=== PATIENT | female | born 1940 | race Caucasian/White ===

== ENCOUNTER 2016-07-04 13:43 | Emergency (ER) | payer OTHER ==
--- NOTE | 2016-07-04 14:37 | ED CLINICAL REPORT ---
Clinical Report - Physicians/Mid Levels [facility] [address] [place] [address] 07/04/2016 13:48 Patient: YVETTE HERNANDEZ Time Seen: 1416. Arrived- By private vehicle. Historian- patient. HISTORY OF PRESENT ILLNESS Chief Complaint: confusion. This started today, patient was last known well (yesterday), is still present (resolved) and is now gone. It was abrupt in onset and has been constant. (amnesia). At its maximum deficit described as mild. When seen in the E.D., it was gone. No dizziness, altered mental status, seizure or blackouts. Usually is alert and oriented X3 and has normal mobility. Similar symptoms previously: None. Recent medical care: The patient was seen recently in a clinic. ( referred here to the emergency department). REVIEW OF SYSTEMS No fever, headache, head injury, chest pain or abdominal pain. No nausea, skin rash or vomiting. All systems otherwise negative, except as recorded above. PAST HISTORY See nurses notes. Medications: another one doesn't know what or what for. Blood Pressure Pill. Allergies: No Known Drug Allergy. SOCIAL HISTORY Former smoker. Alcohol use. No drug use. No recent travel. Is a local resident. ADDITIONAL NOTES The nursing notes have been reviewed. PHYSICAL EXAM Vital Signs: 07/04/2016 13:51 BP: 149/106. HR: 88. RR: 18. O2 saturation: 98%. Temp: 98.4 F. Oxygen saturation normal. Appearance: Alert. No acute distress. Odor of alcohol is not present. Speech is not slurred. The patient is not agitated. (nontoxic in appearance. cooperative, pleasant, polite). Head: Head atraumatic. Eyes: Pupils equal, round and reactive to light. ENT: Normal ENT inspection. Airway intact. Pharynx normal. (PERRLA. extraocular movements are intactno nystagmus.). Neck: Normal inspection. Neck supple. CVS: Normal heart rate and rhythm. Heart sounds normal. Pulses normal. Respiratory: No respiratory distress. Breath sounds normal. Abdomen: Soft and nontender. No organomegaly. Skin: Skin warm and dry. Normal skin color. No rash. Normal skin turgor. Extremities: Extremities exhibit normal ROM. No lower extremity edema. Neuro: Alert. Oriented X 3. Mood/affect normal. Speech normal. Cranial nerves normal (as tested). No cerebellar findings. No motor deficit. No sensory deficit. Reflexes normal. PROGRESS AND PROCEDURES Course of Care: the patient is a pleasant 75-year-old female presenting for evaluation of amnesia. Because of the patient's presentation, would be concern for TIA or CVA. Patient expressed her concerns here in the emergency department about of "milking her insurance company. "Patient further states that she feels fine and she does not want to be here and does not want any workup performed. expressed my concern for her symptoms yesterday. Explained to patient that her symptoms may have resolved because of a transient ischemic attack and would be at increased risk for having a stroke in the future. Patient expressed understanding of my concerns however states that she does not need to the here in the emergency department but will follow up with her doctor. Discussed with the patienther significant risk for severe permanent disability and including . The patient expressed understanding of these concerns however still declines offers of evaluation of these symptoms. Patient offered other options while here in the emergency department and also told that she is welcome to change her mind at any time. Patient also encouraged to return if she does change her mind after departure from the emergency department. Patient again expressed her thanks in gratitude for our concern however stated that she still does not feel that any of these tests or workup is warranted. Do not feel doctor patient relationship would significantly benefit from AMA form. Patient is able to make medical decisions for herself. Do not feel I can force patient to undergo invasive medical/diagnostic testing against her will. Patient understands our concerns and our willingness to help if she allows us to. Disposition: Discharged. Condition: (unknown). CLINICAL IMPRESSION Acute mental status change with confusion. 07/04/2016 13:51 BP: 149/106. HR: 88. RR: 18. O2 saturation: 98%. Temp: 98.4 F. Hypertensive. Oxygen saturation normal. acute amnesia. INSTRUCTIONS Warnings: GENERAL WARNINGS: Return or contact your physician immediately if your condition worsens or changes unexpectedly, if not improving as expected, or if other problems arise. Specifically return if pain, vomiting, bleeding, breathing difficulty or fever. numbness, weakness, vision changes, difficulty with speech, or other concerns. Your Current Medications: CONTINUE TAKING THE FOLLOWING MEDICATIONS: another one doesn't know what or what for*. Blood Pressure Pill*. Follow-up: Return to the emergency department as needed. Follow up with your doctor in three days. Reason for referral: recheck today's concerns. Summary of care provided to patient via paper. Screening today revealed the patient's blood pressure to be in the normal range. The patient should follow up with a primary care provider for blood pressure management. Understanding of the discharge instructions verbalized by patient. Follow-up with: Nisha Muñoz MD, Neurology, , [address] , [place], [id number] Follow up in three days. Reason for referral: recheck today's concerns. Summary of care provided to patient via paper. (Electronically signed by New Magana Dr. 07/07/2016 6:08)
--- NOTE | 2016-07-04 14:37 | ED NURSING NOTES ---
Clinical Report - Nurses [facility] [address] [place] [address] 07/04/2016 13:48 [id number] Triage time 13:52 Jul 04 2016. Acuity: LEVEL 3. Chief Complaint: (Has periods of amnesia yesterday couldn't remember getting up and getting ready and went to a lunch with a friend but has no memory.). CHEMA COMA SCORE: Willis Coma Scale: 15- eyes open spontaneously (4); best verbal response- oriented x 4 (5); best motor response- obeys commands (6). --14:03 Simi Frias R.N. 13:51 07/04/16. BP: 149/106. HR: 88. RR: 18. O2 saturation: 98%. Temp: 98.4 F. Pain level now 0/10. --14:03 Simi Frias R.N. Weight: 104.3 kg stated. Height/Length: 67 inches Per Patient. BMI: 36. --14:01 Simi Frias R.N. Medications Blood Pressure Pill. --13:55 Simi Frias R.N. another one doesn't know what or what for. --13:56 Simi Frias R.N. Allergies No Known Drug Allergy. --13:56 Simi Frias R.N. History Arrived by private vehicle. Historian: patient. Accompanied by family. This started yesterday. Patient was last known well (Friday). She has had altered mental status. No headache, recent fall, impaired speech or trouble walking or swallowing. No dizziness, weakness or numbness. Treatment MANAGER REVENUE: None. PAST MEDICAL HX: Hypertension. No history of stroke or diabetes mellitus. No history of dementia or seizures. Immunizations: status is unknown. SOCIAL HX: Former smoker, end date 1965. Regular alcohol use; consumes one liquor daily. No drug use. SELF HARM ASSESSMENT: A self harm assessment was performed. The patient answered "no" to the question "Have you recently felt down, depressed, or hopeless?" and "Do you have thoughts of harming or killing yourself?". FALL RISK ASSESSMENT: Fall risk assessment completed. No fall risk identified. NUTRITIONAL RISK ASSESSMENT: The nutritional risk assessment revealed no deficiencies. FUNCTIONAL ASSESSMENT: Functional assessment: no impairments noted. LEARNING NEEDS ASSESSMENT: The learning needs assessment revealed no barriers. ABUSE ASSESSMENT: Abuse assessment: (yes) The patient was asked "Do you feel safe in your home?". SKIN INTEGRITY ASSESSMENT: Skin integrity risk assessment completed. No skin integrity risk identified. --14: Simi Frias R.N. PROBLEMS: High blood pressure . --13:58 Simi Frias R.N. ADDITIONAL SURGERIES: Hysterectomy. Wrist surgery . --13:58 Simi Frias R.N. Interventions ID band on patient. --14: Simi Frias R.N. PHYSICAL ASSESSMENT Ambulatory to room. Baseline functional status: usually alert, oriented x4 and cooperative. Verbal response: usually clear and appropriate. Motor response: usually steady gait ( Had episode of no memory doesn't remember waking up yesterday or any morning activities until noon.). GENERAL / NEURO / PSYCH: Awake. Oriented X 4. Alert. Appears in no acute distress. Speech normal. Mood/affect normal. Moves all extremities equally. No motor deficit. No sensory deficit. HEENT: No facial asymmetry noted. Pupils equal, round and reactive to light. EOM intact. Pharynx within normal limits. RESPIRATORY: Breath sounds within normal limits. Respirations not labored. CVS: Normal sinus rhythm noted. Capillary refill less than 2 seconds. SKIN: Skin is intact, warm and dry. --14:05 Simi Frias R.N. NURSING PROGRESS NOTES The initial plan of care for this patient includes an assessment with efforts to address patient positioning, appropriate ambient lighting and comfortable environmental temperature. Pulse oximeter and NIBP monitor placed on patient. Patient gowned. Head of bed elevated 75 degrees. Reassurance given. Call light placed in reach. Side rails up x 1. Bed placed in lowest position. Brakes of bed on. --14:05 Simi Frias R.N. DISPOSITION / DISCHARGE Departure time: 1449Jul 04 2016. Condition at departure: unchanged. No learning barriers present. Discharge instructions provided and reviewed with the patient. Reviewed warnings. Reviewed medication(s). Treatments reviewed. Reviewed referrals. Patient verbalized understanding. Written instructions provided in Icelandic. The patient was discharged home and accompanied by family. She left the Emergency Department ambulatory and via private vehicle. Family member driving. ( Patient refused all care. Instructed about following up with neuro and gave the info for her to contact.). --15:15 Simi Frias R.N. 13:51 07/04/16. BP: 149/106. HR: 88. RR: 18. O2 saturation: 98%. Temp: 98.4 F. Pain level now 0/10. --15:15 Simi Frias R.N. Locked/Released at 07/04/2016 18:55 by Simi Frias R.N.
--- NOTE | 2016-07-04 14:37 | ED NURSING NOTES ---
Clinical Report - Nurses [facility] [address] [place] [address] 07/04/2016 13:48 [id number] Triage time 13:52 Jul 04 2016. Acuity: LEVEL 3. Chief Complaint: (Has periods of amnesia yesterday couldn't remember getting up and getting ready and went to a lunch with a friend but has no memory.). CHEMA COMA SCORE: Mascotte Coma Scale: 15- eyes open spontaneously (4); best verbal response- oriented x 4 (5); best motor response- obeys commands (6). --14:03 Simi Frias R.N. 13:51 07/04/16. BP: 149/106. HR: 88. RR: 18. O2 saturation: 98%. Temp: 98.4 F. Pain level now 0/10. --14:03 Simi Frias R.N. Weight: 104.3 kg stated. Height/Length: 67 inches Per Patient. BMI: 36. --14:01 Simi Frias R.N. Medications Blood Pressure Pill. --13:55 Simi Frias R.N. another one doesn't know what or what for. --13:56 Simi Frias R.N. Allergies No Known Drug Allergy. --13:56 Simi Frias R.N. History Arrived by private vehicle. Historian: patient. Accompanied by family. This started yesterday. Patient was last known well (Friday). She has had altered mental status. No headache, recent fall, impaired speech or trouble walking or swallowing. No dizziness, weakness or numbness. 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 PAST MEDICAL HX: Hypertension. No history of stroke or diabetes mellitus. No history of dementia or seizures. Immunizations: status is unknown. SOCIAL HX: Former smoker, end date 1965. Regular alcohol use; consumes one liquor daily. No drug use. SELF HARM ASSESSMENT: A self harm assessment was performed. The patient answered "no" to the question "Have you recently felt down, depressed, or hopeless?" and "Do you have thoughts of harming or killing yourself?". FALL RISK ASSESSMENT: Fall risk assessment completed. No fall risk identified. NUTRITIONAL RISK ASSESSMENT: The nutritional risk assessment revealed no deficiencies. FUNCTIONAL ASSESSMENT: Functional assessment: no impairments noted. LEARNING NEEDS ASSESSMENT: The learning needs assessment revealed no barriers. ABUSE ASSESSMENT: Abuse assessment: (yes) The patient was asked "Do you feel safe in your home?". SKIN INTEGRITY ASSESSMENT: Skin integrity risk assessment completed. No skin integrity risk identified. --14: Simi Frias R.N. PROBLEMS: High blood pressure . --13:58 Simi Frias R.N. ADDITIONAL SURGERIES: Hysterectomy. Wrist surgery . --13:58 Simi Frias R.N. Interventions ID band on patient. --14: Simi Frias R.N. PHYSICAL ASSESSMENT Ambulatory to room. Baseline functional status: usually alert, oriented x4 and cooperative. Verbal response: usually clear and appropriate. Motor response: usually steady gait ( Had episode of no memory doesn't remember waking up yesterday or any morning activities until noon.). GENERAL / NEURO / PSYCH: Awake. Oriented X 4. Alert. Appears in no acute distress. Speech normal. Mood/affect normal. Moves all extremities equally. No motor deficit. No sensory deficit. HEENT: No facial asymmetry noted. Pupils equal, round and reactive to light. EOM intact. Pharynx within normal limits. RESPIRATORY: Breath sounds within normal limits. Respirations not labored. CVS: Normal sinus rhythm noted. Capillary refill less than 2 seconds. SKIN: Skin is intact, warm and dry. --14:05 Simi Frias R.N. NURSING PROGRESS NOTES The initial plan of care for this patient includes an assessment with efforts to address patient positioning, appropriate ambient lighting and comfortable environmental temperature. Pulse oximeter and NIBP monitor placed on patient. Patient gowned. Head of bed elevated 75 degrees. Reassurance given. Call light placed in reach. Side rails up x 1. Bed placed in lowest position. Brakes of bed on. --14:05 Simi Frias R.N. DISPOSITION / DISCHARGE Departure time: 1449Jul 04 2016. Condition at departure: unchanged. No learning barriers present. Discharge instructions provided and reviewed with the patient. Reviewed warnings. Reviewed medication(s). Treatments reviewed. Reviewed referrals. Patient verbalized understanding. Written instructions provided in Somali. The patient was discharged home and accompanied by family. She left the Emergency Department ambulatory and via private vehicle. Family member driving. ( Patient refused all care. Instructed about following up with neuro and gave the info for her to contact.). --15:15 Simi Frias R.N. 13:51 07/04/16. BP: 149/106. HR: 88. RR: 18. O2 saturation: 98%. Temp: 98.4 F. Pain level now 0/10. --15:15 Simi Frias R.N. Locked/Released at 07/04/2016 18:55 by Simi Frias R.N.
--- NOTE | 2016-07-04 14:37 | ED ORDER SUMMARY ---
..... Patient: YVETTE HERNANDEZ OrderSheet [facility] VisitID: [id number] [address] [place] [address] 75y, F Registration Date/Time: 07/04/2016 ORDER SHEET Weight: 104.3 kg (stated) Allergies: No Known Drug Allergy GENERAL ORDERS: Chest 2V Urgent (14:15 07/04/2016 Jean Carlos Sotelo) (Ack 14:18 Bob) Photogrammetric Tech (Continuous) (amnesia) (14:15 07/04/2016 Jean Carlos Sotelo) (Ack 14:17 Bob) CT Head wo Cont Urgent (14:16 07/04/2016 Jean Carlos Sotelo) (Ack 14:18 Bob) CBC w Diff Urgent (14:16 07/04/2016 Jean Carlos Sotelo) (Ack 14:18 Bob) CMP Urgent (14:16 07/04/2016 Jean Carlos Sotelo) (Ack 14:17 Bob) UA-Culture if indicated Urgent (14:16 07/04/2016 Jean Carlos Sotelo) (Ack 14:17 Bob) PT with INR Urgent (14:16 07/04/2016 Jean Carlos Sotelo) (Ack 14:17 Bob) EKG - ER Stat (14:16 07/04/2016 Jean Carlos Sotelo) (Ack 14:17 Lilo) (Ack 14:18 Bob) Pulse oximeter (14:16 07/04/2016 Jean Carlos Sotelo) (Ack 14:17 Bob) MEDICATION ORDERS: IV FLUIDS: IV Saline Lock (14:16 07/04/2016 Jean Carlos Sotelo) ORDER SHEET NOTES: [Electronically signed by Simi Frias R.N. (18:55 07/04/2016)] [Electronically signed by New Mag[address] Dr. (06:08 07/07/2016)] [Electronically locked/signed by Simi Frias R.N. (18:55 07/04/2016)]
--- NOTE | 2016-07-04 14:37 | ED ORDER SUMMARY ---
..... Patient: YVETTE HERNANDEZ OrderSheet [facility] VisitID: [id number] [address] [place] [address] 75y, F Registration Date/Time: 07/04/2016 ORDER SHEET Weight: 104.3 kg (stated) Allergies: No Known Drug Allergy GENERAL ORDERS: Chest 2V Urgent (14:15 07/04/2016 Jean Carlos Sotelo) (Ack 14:18 Bob) Compliance Field Technician (Continuous) (amnesia) (14:15 07/04/2016 Jean Carlos Sotelo) (Ack 14:17 Bob) CT Head wo Cont Urgent (14:16 07/04/2016 Jean Carlos Sotelo) (Ack 14:18 Bob) CBC w Diff Urgent (14:16 07/04/2016 Jean Carlos Sotelo) (Ack 14:18 Bob) CMP Urgent (14:16 07/04/2016 Jean Carlos Sotelo) (Ack 14:17 Bob) UA-Culture if indicated Urgent (14:16 07/04/2016 Jean Carlos Sotelo) (Ack 14:17 Bob) PT with INR Urgent (14:16 07/04/2016 Jean Carlos Sotelo) (Ack 14:17 Bob) EKG - ER Stat (14:16 07/04/2016 Jean Carlos Sotelo) (Ack 14:17 Lilo) (Ack 14:18 Bob) Pulse oximeter (14:16 07/04/2016 Jean Carlos Sotelo) (Ack 14:17 Bob) MEDICATION ORDERS: IV FLUIDS: IV Saline Lock (14:16 07/04/2016 Jean Carlos Sotelo) ORDER SHEET NOTES: [Electronically signed by Simi Frias R.N. (18:55 07/04/2016)] [Electronically signed by New [address] Dr. (06:08 07/07/2016)] [Electronically locked/signed by Simi Frias R.N. (18:55 07/04/2016)]
--- NOTE | 2016-07-07 06:08 | ED MED RECONCILIATION SUMMARY ---
Patient: YVETTE HERNANDEZ Medication Reconciliation Report [facility] VisitID: [id number] [address] [place] [address] 75y, F Registration Date/Time: 07/04/2016 Weight: 104.3 kg Height/Length: 67 in. BMI: 36.0 ALLERGIES: No Known Drug Allergy The patient's Home Medications are listed below: CONTINUE TAKING THE FOLLOWING MEDICATIONS: another one doesn't know what or what for Blood Pressure Pill The source(s) of the original Home Medication information: Not obtained. The following Medications were given to the patient in the Emergency Department: None. The following Medications were prescribed to the patient: None.
--- NOTE | 2016-07-07 06:08 | ED DISCHARGE INSTRUCTIONS ---
Patient: YVETTE HERNANDEZ General Instructions [facility] VisitID: [id number] [address] [place] [address] 75y, F Registration Date/Time: 07/04/2016 Acute mental status change with confusion. 07/04/2016 13:51 BP: 149/106. HR: 88. RR: 18. O2 saturation: 98%. Temp: 98.4 F. Hypertensive. Oxygen saturation normal. acute amnesia. INSTRUCTIONS Warnings: GENERAL WARNINGS: Return or contact your physician immediately if your condition worsens or changes unexpectedly, if not improving as expected, or if other problems arise. Specifically return if pain, vomiting, bleeding, breathing difficulty or fever. numbness, weakness, vision changes, difficulty with speech, or other concerns. Your Current Medications: CONTINUE TAKING THE FOLLOWING MEDICATIONS: another one doesn't know what or what for*. Blood Pressure Pill*. Follow-up: Return to the emergency department as needed. Follow up with your doctor in three days. Reason for referral: recheck today's concerns. Summary of care provided to patient via paper. Screening today revealed the patient's blood pressure to be in the normal range. The patient should follow up with a primary care provider for blood pressure management. Understanding of the discharge instructions verbalized by patient. Follow-up with: Nisha Muñoz MD, Neurology, , [address] , [place], [phone] Follow up in three days. Reason for referral: recheck today's concerns. Summary of care provided to patient via paper. ADDITIONAL INFORMATION Confusion Confusion is a change in a persons ability to think clearly. There may be trouble recognizing familiar people and places, or knowing what day it is. Memory, judgement and decision-making may also be affected. In severe cases there may be limited or no response to verbal commands. Confusion may occur suddenly or develop gradually over time. There are many injuries and medical conditions that can cause this problem. These include brain injury, side effect of medication, intoxication, withdrawal from drugs, infection, stroke, dementia,mental illness and other causes. The exam and testing today did not show the cause of this problem. Further testing will be needed. Specific treatment and hope for recovery depend on the cause of this symptom. Home Care: Be sure someone is with the confused person at all times. He/she should not be left alone or unsupervised. Keep medicines (prescription and [id number]) in a secure place, under the caregivers control. A person with confusion should not be allowed to take their own medicines.This needs to be supervised by the caregiver. Ways to help a person with confusion: Activities:Establish a daily routine. Change can be a source of stress for someone with confusion. Make a time schedule for common tasks such as: bathing, dressing, taking medicines, meals, going for walks, shopping, naps and bed time. Communication:Speak slowly and clearly with a gentle tone of voice. Use short simple words and sentences. Ask one question at a time. Do not interrupt, criticize or argue. Be calm and supportive. Use friendly facial expressions. Use pointing and touching to help communicate. If there has been loss of long-term memory, do not ask questions about past events. This would only cause frustration for the person. Behavioral tips:Use lists, signs, family photos, clocks and calendars as memory aids. Label cabinets and drawers. Try to distract, not confront, the patient. When he/she becomes frustrated or upset, redirect his/her attention to eating or some other activity of interest. Medical-Legal tips: If this proves to be a permanent condition, talk to your doctor and/or supervisor epoxy fabrication about getting a Power of Cloth Dyer for health care and for financial decisions. It is best to do this while the person can still sign legal documents and make his/robert own legal decisions. Otherwise, a court order will be required. Follow-Up with the patients doctor or as advised by our staff for further testing. Get Prompt Medical Attention if any of the following occur: Frequent falling Refusal to eat or drink Violent behavior or behavior becomes too difficult to manage at home Increased drowsiness, or failure to respond normally Increasing headache, nausea or repeated vomiting Numbness or weakness of the face, one arm or one leg Slurred speech, trouble speaking, walking or seeing Fainting spell, dizziness or seizure Unexplained fever over 100.4 F (38.0 C) oral You have been given the following additional information: Confusion (Electronically signed by New Magana Dr. 07/07/2016 6:08)
--- NOTE | 2016-07-07 06:08 | ED MAR SUMMARY ---
..... Medication Administration Record [facility] [address] [place] [address] Patient: YVETTE HERNANDEZ Visit ID: [id number] 75y, F Weight: 104.3 kg Height/Length: 67 in BMI: 36 ALLERGIES: No Known Drug Allergy
--- NOTE | 2016-07-07 06:08 | ED MAR SUMMARY ---
..... Medication Administration Record [facility] [address] [place] [address] Patient: YVETTE HERNANDEZ Visit ID: [id number] 75y, F Weight: 104.3 kg Height/Length: 67 in BMI: 36 ALLERGIES: No Known Drug Allergy
--- NOTE | 2016-07-07 06:08 | ED MED RECONCILIATION SUMMARY ---
Patient: YVETTE HERNANDEZ Medication Reconciliation Report [facility] VisitID: [id number] [address] [place] [address] 75y, F Registration Date/Time: 07/04/2016 Weight: 104.3 kg Height/Length: 67 in. BMI: 36.0 ALLERGIES: No Known Drug Allergy The patient's Home Medications are listed below: CONTINUE TAKING THE FOLLOWING MEDICATIONS: another one doesn't know what or what for Blood Pressure Pill The source(s) of the original Home Medication information: Not obtained. The following Medications were given to the patient in the Emergency Department: None. The following Medications were prescribed to the patient: None.
--- NOTE | 2016-07-07 06:08 | ED DISCHARGE INSTRUCTIONS ---
Patient: YVETTE HERNANDEZ General Instructions [facility] VisitID: [id number] [address] [place] [address] 75y, F Registration Date/Time: 07/04/2016 Acute mental status change with confusion. 07/04/2016 13:51 BP: 149/106. HR: 88. RR: 18. O2 saturation: 98%. Temp: 98.4 F. Hypertensive. Oxygen saturation normal. acute amnesia. INSTRUCTIONS Warnings: GENERAL WARNINGS: Return or contact your physician immediately if your condition worsens or changes unexpectedly, if not improving as expected, or if other problems arise. Specifically return if pain, vomiting, bleeding, breathing difficulty or fever. numbness, weakness, vision changes, difficulty with speech, or other concerns. Your Current Medications: CONTINUE TAKING THE FOLLOWING MEDICATIONS: another one doesn't know what or what for*. Blood Pressure Pill*. Follow-up: Return to the emergency department as needed. Follow up with your doctor in three days. Reason for referral: recheck today's concerns. Summary of care provided to patient via paper. Screening today revealed the patient's blood pressure to be in the normal range. The patient should follow up with a primary care provider for blood pressure management. Understanding of the discharge instructions verbalized by patient. Follow-up with: Nisha Muñoz MD, Neurology, , [address] , [place], [id number] Follow up in three days. Reason for referral: recheck today's concerns. Summary of care provided to patient via paper. ADDITIONAL INFORMATION Confusion Confusion is a change in a persons ability to think clearly. There may be trouble recognizing familiar people and places, or knowing what day it is. Memory, judgement and decision-making may also be affected. In severe cases there may be limited or no response to verbal commands. Confusion may occur suddenly or develop gradually over time. There are many injuries and medical conditions that can cause this problem. These include brain injury, side effect of medication, intoxication, withdrawal from drugs, infection, stroke, dementia,mental illness and other causes. The exam and testing today did not show the cause of this problem. Further testing will be needed. Specific treatment and hope for recovery depend on the cause of this symptom. Home Care: Be sure someone is with the confused person at all times. He/she should not be left alone or unsupervised. Keep medicines (prescription and [id number]) in a secure place, under the caregivers control. A person with confusion should not be allowed to take their own medicines.This needs to be supervised by the caregiver. Ways to help a person with confusion: Activities:Establish a daily routine. Change can be a source of stress for someone with confusion. Make a time schedule for common tasks such as: bathing, dressing, taking medicines, meals, going for walks, shopping, naps and bed time. Communication:Speak slowly and clearly with a gentle tone of voice. Use short simple words and sentences. Ask one question at a time. Do not interrupt, criticize or argue. Be calm and supportive. Use friendly facial expressions. Use pointing and touching to help communicate. If there has been loss of long-term memory, do not ask questions about past events. This would only cause frustration for the person. Behavioral tips:Use lists, signs, family photos, clocks and calendars as memory aids. Label cabinets and drawers. Try to distract, not confront, the patient. When he/she becomes frustrated or upset, redirect his/her attention to eating or some other activity of interest. Medical-Legal tips: If this proves to be a permanent condition, talk to your doctor and/or purchasing department clerk about getting a Power of [employer] for health care and for financial decisions. It is best to do this while the person can still sign legal documents and make his/robert own legal decisions. Otherwise, a court order will be required. Follow-Up with the patients doctor or as advised by our staff for further testing. Get Prompt Medical Attention if any of the following occur: Frequent falling Refusal to eat or drink Violent behavior or behavior becomes too difficult to manage at home Increased drowsiness, or failure to respond normally Increasing headache, nausea or repeated vomiting Numbness or weakness of the face, one arm or one leg Slurred speech, trouble speaking, walking or seeing Fainting spell, dizziness or seizure Unexplained fever over 100.4 F (38.0 C) oral You have been given the following additional information: Confusion (Electronically signed by [place] [address]. 07/07/2016 6:08)
== END 2016-07-04 14:50 | disposition home or self-care (01) ==
LOC: ED SRH 13:43
DX: R41.82 Altered mental status, unspecified (principal); R41.0 Disorientation, unspecified; R41.3 Other amnesia; I10 Essential (primary) hypertension; Z87.891 Personal history of nicotine dependence; Z79.899 Other long term (current) drug therapy